=== PATIENT | female | born 1980 | race Caucasian/White ===

== ENCOUNTER 2017-06-19 05:57 | Emergency (ER) | payer OTHER ==
[~2017-06-19] VITALS: Ht 157.5 cm; Wt 100.5 kg
[2017-06-19 06:03] VITALS: Ht 157.5 cm; Wt 100.5 kg
[2017-06-19 07:18] LABS: ADD UMIC YES; UR ASCORBIC ACID NEGATIVE (NEGATIVE); UR BILIRUBIN (Dip) NEGATIVE (NEGATIVE); UR BLOOD (Dip) NEGATIVE (NEGATIVE); UR CLARITY CLOUDY (CLEAR); UR COLOR RED (YELLOW); UR GLUCOSE (Dip) NEGATIVE (NEGATIVE); UR KETONES (Dip) NEGATIVE (NEGATIVE); UR LEUKOCYTE ESTERASE (Dip) NEGATIVE Leu/ul (NEGATIVE); UR MUCUS MANY /HPF (NONE SEEN); UR NITRITE (Dip) POSITIVE (NEGATIVE); UR RBC 12 /HPF (0-5); UR SPECIFIC GRAVITY (Dip) 1.018 (1.003-1.030); UR SQUAMOUS EPITHELIAL CELL FEW /HPF (FEW); UR TOTAL PROTEIN (Dip) 2+ mg/dl (NEGATIVE); UR UROBILINOGEN (Dip) NEGATIVE (NEGATIVE)
[2017-06-19] MEDS ORDERED: CEPH-443 PO (07:32)
[2017-06-19] MEDS ORDERED: IBUP-1542 PO (07:32)
--- NOTE | 2017-06-19 07:36 | ERD ---
ER Documentation Chief Complaint Chief Complaint painful/burning/frequent urination x 11 days HPI 36-year-old female presents with 11 day history of dysuria, urgency and frequency. She states that this feels similar to her past urinary tract infections. She tried [id number] Azo medication without much relief. She denies any fevers or chills, vomiting, nausea, diarrhea, hematuria flank pain. She denies vaginal bleeding or abnormal vaginal discharge. ROS All systems reviewed and are negative except as per history of present illness. Medications Home Meds Active Scripts Ibuprofen* (Motrin*) 600 Mg Tab, 600 MG PO Q6, #30 TAB Prov:TANIKA KOENIG PA-C 06/19/17 Cephalexin* (Keflex*) 500 Mg Capsule, 500 MG PO TID for 7 Days, CAP Prov:TANIKA KOENIG PA-C 06/19/17 Allergies Allergies: Coded Allergies: aloe vera (Verified Allergy, Unknown, rash, 06/19/17) PMhx/Soc Medical and Surgical Hx: pt denies Medical Hx, pt denies Surgical Hx Hx Alcohol Use: No Hx Substance Use: No Hx Tobacco Use: No Smoking Status: Never smoker Physical Exam Vitals Vital Signs Date Time Temp Pulse Resp B/P Pulse Ox O2 Delivery O2 Flow Rate FiO2 06/19/17 06:03 97.9 72 20 160/73 100 Physical Exam General: Well-developed, well-nourished. The patient appears in no acute distress. HEENT: Head is normocephalic, atraumatic. No scleral icterus. Neck: Supple. Nontender. Lungs: Clear to auscultation. Normal air movement. Heart: Regular rate and rhythm. S1 and S2 are normal. No murmurs, gallops, or rubs. Abdomen: Soft, nontender, nondistended. Bowel sounds are normoactive. Extremities: No clubbing or cyanosis. Normal pulses. Moving extremities x 4. No weakness. Neurologic: Alert and oriented 3. No focal deficits. Skin: Normal turgor. No rash or lesions. Results 24 hrs Laboratory Tests Test 06/19/17 06:48 Urine Color RED Urine Clarity CLOUDY Urine pH 5.0 Urine Specific [place] 1.018 Urine Ketones NEGATIVEmg/dL Urine Nitrite POSITIVEmg/dL Urine Bilirubin NEGATIVEmg/dL Urine Urobilinogen NEGATIVEmg/dL Urine Leukocyte Esterase NEGATIVELeu/ul Urine Microscopic RBC 12/HPF Urine Microscopic WBC > 182/HPF Urine Squamous Epithelial Cells FEW/HPF Urine Mucus MANY/HPF Urine Hemoglobin NEGATIVEmg/dL Urine Glucose NEGATIVEmg/dL Urine Total Protein 2+mg/dl Urine Test Pending Procedures/MDM 36-year-old female presents with urinary tract infection, most consistent with acute cystitis. She is nitrite positive urine with a large number of white blood cells in the urine analysis and will be treated for urinary tract infection based on the patient's symptoms. She does not show any signs of PID, cervicitis, kidney stones, pyelonephritis. Departure Diagnosis: Primary Impression: UTI (urinary tract infection) Condition: Good Patient Instructions: Understanding Urinary Tract Infections (UTIs) TANIKA KOENIG PA-C Jun 19, 2017 07:36
== END 2017-06-19 07:57 | disposition home or self-care (01) ==
LOC: FTE 05:57
DX: N30.00 Acute cystitis without hematuria (principal)
CPT/HCPCS: 81001; 84703; Z7502; 99283